=== PATIENT | male | born 1985 | race Caucasian/White ===

== ENCOUNTER 2023-10-15 15:26 | Emergency (ER) | payer SELFPAY ==
[~2023-10-15] VITALS: Ht 167.6 cm; Wt 75.0 kg
[2023-10-15 15:36] VITALS: BP 151/94; PULSE 124; RESP 16; TEMP 98.7; O2SAT 97
[2023-10-15 16:41] LABS: HEMATOCRIT. 48.5 % (42.0-52.0); HEMOGLOBIN. 16.9 g/dL (14.0-18.0); MEAN CORPUSCULAR HEMOGLOBIN 34.6 pg (28.0-32.0); MEAN CORPUSCULAR HGB CONC 34.9 g/dL (31.0-37.0); MEAN CORPUSCULAR VOLUME 99.3 fL (80.0-94.0); MEAN PLATELET VOLUME 7.1 fl (7.4-10.4); PLATELET 166 x1000/uL (130-400); RED BLOOD CELL COUNT 4.88 mill/uL (4.7-6.1); WHITE BLOOD COUNT 12.7 x1000/uL (4.5-11.0)
[2023-10-15 16:43] LABS: DIFFERENTIAL COMMENT 1
[2023-10-15 16:57] LABS: ALANINE AMINOTRANSFERASE 72 IU/L (10-49); ALBUMIN 4.6 g/dL (3.2-4.8); ASPARTATE AMINOTRANSFERASE 58 IU/L (<34); BILIRUBIN TOTAL 0.7 mg/dL (0.1-1.0); CALCIUM 9.4 mg/dL (8.7-10.4); CARBON DIOXIDE 25 mEq/L (21-32); CHLORIDE 100 mEq/L (98-107); CREATININE 0.8 mg/dL (0.6-1.3); GLUCOSE 106 mg/dL (70-105); POTASSIUM 4.5 mEq/L (3.5-5.1); PROTEIN TOTAL 8.3 g/dL (6.0-8.3); SODIUM 132 mEq/L (136-145); UREA NITROGEN BLOOD 6 mg/dL (9-23)
[2023-10-15 16:59] LABS: ETHANOL BLOOD < 10 mg/dL (<10)
[2023-10-15 17:55] LABS: PLATELET ESTIMATE NORMAL
[2023-10-15 17:56] LABS: ANISOCYTOSIS 1+
== END 2023-10-15 17:53 | disposition left against medical advice (07) ==
LOC: ER 15:26
DX: R56.9 Unspecified convulsions (principal); I10 Essential (primary) hypertension
CPT/HCPCS: 36415; 80053; 80320; 85025; 93005; 99284; G0480